=== PATIENT | male | born 1950 | race Caucasian/White ===

== ENCOUNTER 2020-08-20 06:36 | Day surgery (SDC) | payer MEDICARE, OTHER, BC ==
[2020-08-20] MEDS ORDERED: Propofol 200 MG/20 ML SDV ONE (07:01)
[2020-08-20] MEDS ORDERED: fentaNYL 100 MCG/2 ML SDV ONE (07:01)
[2020-08-20 07:29] LABS: CORONAVIRUS COVID-19 NAA NEGATIVE (NEGATIVE)
[2020-08-20] MEDS ORDERED: Cyanocobalamin (Vitamin B12) 1,000 MCG/ML SDV IM ONE (07:30)
[2020-08-20] MEDS ORDERED: Lactated Ringers 1,000 ML IV ONE (07:30)
[2020-08-20] MEDS ORDERED: Glycopyrrolate 0.2 MG/ML 2 ML SDV IVPUSH ONE (07:30)
[2020-08-20] MEDS ORDERED: MVI, Adult with Vitamin K 10 ML, Thiamine 200 MG, Zinc/Copper/Manganese/Selenium 1 ML i... IV ONE ×4 (08:30)
--- NOTE | 2020-09-01 11:48 | OR ---
DATE OF PROCEDURE: 08/20/2020 SURGEON: Tashi Stockton MD PREOPERATIVE DIAGNOSIS: Severe reflux and pulmonary aspiration episodes, status post laparoscopic adjustable gastric band. POSTOPERATIVE DIAGNOSES: 1. Severe reflux and pulmonary aspiration episodes, status post laparoscopic adjustable gastric band. 2. Severe esophageal dilation and ulcerated distal esophagitis. OPERATIVE PROCEDURES: Esophagogastroduodenoscopy with antral biopsies for CLOtest. ANESTHESIA: IV sedation. INDICATION FOR PROCEDURE: The patient is status post a laparoscopic band placement at [facility] in [place], [place], in 2008. Over the last year, he has had progressive problems with severe reflux symptoms as well as vomiting several times a week of otherwise undigested food. He also has developed somewhat of a chronic cough and does wake up evidently probably having aspirated some esophageal contents. Given this, he is to undergo an upper endoscopy for evaluation. Potential risks, including bleeding and perforation, were discussed, and the patient wishes to proceed. DETAILS OF PROCEDURE: The patient was taken to the operating room and placed in the left lateral decubitus position. IV sedation was administered, after which the upper GI endoscope was passed orally through the length of the esophagus and into the stomach with retroflexion view of the fundus and thereafter through the pyloric channel to the junction of the third and fourth portions of the duodenum. Examination revealed reddened hypopharynx and larynx, and as one entered the esophagus, it was noted to be diffusely dilated, particularly distally, with that there was some retained fluid as well as some scattered solid food within the distal esophagus despite the patient having been n.p.o. for several hours. This was associated with marked redness and friability of the distal esophagus. The band itself was normally positioned with no narrowing of the stomach at the point of band i.e., there was no mechanical obstruction present. The remainder of the gastric and duodenal exams were unremarkable. At this point, biopsies were obtained from the antrum and sent for CLOtest for H pylori. The scope was then withdrawn and the procedure then concluded. Of note, the patient had no further evidence of any cardiac problems during the upper endoscopy. The plan will be to have the patient call Palma Marti on her virtual visit in roughly 1 week. At a bear minimum, the patient should have the band removed. Ideally, this would be associated with conversion to a Angelika-en-Y gastric bypass to avoid recurrent problems with morbid obesity, and this will be discussed at the virtual visit in roughly 1 week. Tashi Stockton MD /[id number]
--- NOTE | 2020-09-01 12:27 | PN ---
DATE OF SERVICE: 08/20/2020 Mr. Elaine was willing to be receiving an upper endoscopy receiving for evaluation of lap- band status. He received Robinul with the usual dose of 0.4 mg and he was noted to develop a considerable chest pain. At that time, he was transferred to the emergency room. He was noted to have normal EKG and his pain dissipated. The patient is noted to have two cardiac catheterizations in the last four years, for similar episodes of chest pain, both of which were normal, and at that point was cleared by the emergency room to undergo the subsequent upper endoscopy. We will add Robinul to his allergy list. Tashi Stockton MD /[id number]
== END 2020-08-20 11:24 | disposition home or self-care (01) ==
LOC: JP.SDS 06:36
PROVIDERS: ATTEND Surgery
DX: K21.00 Gastro-esophageal reflux disease with esophagitis, without bleeding (principal); K22.10 Ulcer of esophagus without bleeding; K22.8 Other specified diseases of esophagus; I25.10 Atherosclerotic heart disease of native coronary artery without angina pectoris; E78.00 Pure hypercholesterolemia, unspecified; I10 Essential (primary) hypertension; J44.9 Chronic obstructive pulmonary disease, unspecified; G47.33 Obstructive sleep apnea (adult) (pediatric); E66.01 Morbid (severe) obesity due to excess calories; Z68.33 Body mass index [BMI] 33.0-33.9, adult; Z01.812 Encounter for preprocedural laboratory examination; Z20.822 Contact with and (suspected) exposure to COVID-19; Z98.84 Bariatric surgery status; Z98.890 Other specified postprocedural states
CPT/HCPCS: 0241U; 43239; 87081; 93005; 99284; 99285; J2704; J3010; J3411; J3420; J3490; J7120

== ENCOUNTER 2020-08-20 09:02 | Emergency (ER) | payer MEDICARE, OTHER, BC ==
--- NOTE | 2020-08-20 09:33 | EDM.PDOC ---
ED HPI GENERAL MEDICAL PROBLEM - General Chief Complaint: Chest Pain Stated Complaint: SENT FROM [facility] Time Seen by Provider: 08/20/20 09:15 Source of Information: Reports: Patient, Provider History Limitations: Reports: No Limitations - History of Present Illness INITIAL COMMENTS - FREE TEXT/NARRATIVE: 70-year-old male with a history of angina, he has had 2 angiograms in the last 4 years both normal. He was about to get an EGD when he was given Robinul, then developed some substernal chest pressure and a spasm in his lower back. They decided he should be checked out in the emergency room. On arrival to ER he has no symptoms. He did not develop any shortness of breath, diaphoresis, nausea or neck or jaw or arm pain. Onset: Sudden Duration: Hour(s): (Within the last hour after receiving some medications preprocedure) Location: Reports: Chest, Back (Lower back) Quality: Reports: Sharp - Related Data Allergies Allergy/AdvReac Type Severity Reaction Status Date / Time No Known Allergies Allergy Verified 08/20/20 09:18 Home Meds: Home Meds Acetaminophen 1,000 mg PO Q4HR PRN 08/20/20 [History] Cetirizine [ZyrTEC] 10 mg PO DAILY 08/20/20 [History] Diltiazem [Cardizem] 120 mg PO DAILY 08/20/20 [History] Ibuprofen 400 mg PO Q6HR PRN 08/20/20 [History] Metoprolol Succinate 50 mg PO DAILY 08/20/20 [History] Nitroglycerin [Nitrostat] 0.4 mg SL ASDIRECTED 08/20/20 [History] Pantoprazole 20 mg PO BIDAC 08/20/20 [History] Pramipexole [Mirapex] 0.25 mg PO BEDTIME 08/20/20 [History] Sertraline [Zoloft] 50 mg PO DAILY 08/20/20 [History] atorvaSTATin [Lipitor] 10 mg PO DAILY 08/20/20 [History] buPROPion HCL [Wellbutrin Xl] 150 mg PO DAILY 08/20/20 [History] diphenhydrAMINE HCL [Benadryl] 25 mg PO Q6HR PRN 08/20/20 [History] Past Medical History HEENT History: Reports: Cataract, Impaired Vision Cardiovascular History: Reports: CAD, Heart Murmur, High Cholesterol, Hypertension Respiratory History: Reports: COPD, Sleep Apnea Gastrointestinal History: Reports: Colon Polyp, GERD Musculoskeletal History: Reports: Back Pain, Chronic Psychiatric History: Reports: Addiction, Anxiety, Depression Endocrine/Metabolic History: Reports: Obesity/BMI 30+ - Infectious Disease History Infectious Disease History: Reports: C-Difficile, Chicken Pox, Measles, Mumps - Past Surgical History HEENT Surgical History: Reports: Cataract Surgery, Tonsillectomy Cardiovascular Surgical History: Reports: Other (See Below) Other Cardiovascular Surgeries/Procedures: angiogram Respiratory Surgical History: Reports: None GI Surgical History: Reports: Bariatric Procedure, Colonoscopy, EGD, Hernia, Abdominal, Other (See Below) Other GI Surgeries/Procedures: Lap band in 2008 Endocrine Surgical History: Reports: None Musculoskeletal Surgical History: Reports: None Social & Family History - Family History Family Medical History: No Pertinent Family History - Caffeine Use Caffeine Use: Reports: Coffee ED ROS GENERAL - Review of Systems Review Of Systems: See Below Constitutional: Denies: Fever, Chills HEENT: Reports: No Symptoms Respiratory: Denies: Shortness of Breath Cardiovascular: Reports: Chest Pain (Substernal) GI/Abdominal: Reports: No Symptoms Skin: Reports: No Symptoms Neurological: Reports: No Symptoms ED EXAM, GENERAL - Physical Exam Exam: See Below Exam Limited By: No Limitations General Appearance: Alert, No Apparent Distress Head: Atraumatic Respiratory/Chest: Lungs Clear Cardiovascular: Regular Rate, Rhythm GI/Abdominal: Soft, Non-Tender Neurological: Alert, Oriented Skin Exam: Warm, Dry Course - Vital Signs Last Recorded V/S: Last Vital Signs Temp 97.3 F 08/20/20 09:18 Pulse 65 08/20/20 09:18 Resp 14 08/20/20 09:39 BP 135/79 08/20/20 09:39 Pulse Ox 97 08/20/20 09:39 - Re-Assessments/Exams Free Text/Narrative Re-Assessment/Exam: 08/20/20 09:33 EKG done was normal, and the patient symptoms have resolved. In talking with the patient he has had angina off and on for years but 2 angiograms in the last 4 years have both been normal. Discussed this with Dr. Stockton, the only other op tion other than proceeding with his procedure would be to wait 4 hours and draw troponin which I think would be negative. He agreed to take him back to [facility] for his procedure and will send him back over to ER if they develop any difficulties. Departure - Departure Time of Disposition: 09:39 Disposition: DC/Tfer to Other 70 Reason for Transfer *Q: Other Clinical Impression: Atypical chest pain Referrals: PCP,None [Primary Care Provider] - Forms: ED Department Discharge Care Plan Goals: Patient is to be discharged back to [facility] to get his EGD procedure by Dr. Stockton. Sepsis Event Note (ED) - Evaluation Sepsis Screening Result: No Definite Risk - Focused Exam Vital Signs: Vital Signs Temp Pulse Resp BP Pulse Ox 08/20/20 09:39 14 135/79 97 08/20/20 09:18 97.3 F 65 15 128/68 98
== END 2020-08-20 09:39 | disposition other institution (70) ==
LOC: JP.ED 09:02
DX: R07.89 Other chest pain (principal); I25.10 Atherosclerotic heart disease of native coronary artery without angina pectoris; E78.00 Pure hypercholesterolemia, unspecified; I10 Essential (primary) hypertension; J44.9 Chronic obstructive pulmonary disease, unspecified; K21.9 Gastro-esophageal reflux disease without esophagitis; E66.9 Obesity, unspecified; Z68.33 Body mass index [BMI] 33.0-33.9, adult
CPT/HCPCS: 99284; 99285-25

== ENCOUNTER 2020-09-07 07:08 | Day surgery (SDC) | payer MEDICARE, BC, OTHER ==
[~2020-09-07 07:08] MED LIST: Bupivacaine 0.5% 50 ML MDV ONE; Dexamethasone 4 MG/ML SDV ONE; Glycopyrrolate 0.2 MG/ML 5 ML MDV ONE; Lidocaine 1% with EPINEPHrine 1:100,000 50 ML MDV ONE; Meropenem 500 MG SDV ONE; Neostigmine Methylsulfate 1 MG/ML 5 ML Syringe ONE; Ondansetron 4 MG/2 ML SDV ONE; Propofol 200 MG/20 ML SDV ONE; Rocuronium 50 MG/5 ML Vial ONE; Succinylcholine 200 MG/10 ML MDV ONE; fentaNYL 250 MCG/5 ML SDV ONE
[2020-09-07] MEDS ORDERED: Albuterol/Ipratropium 3.0-0.5 MG/3 ML Neb Soln NEB ONE (07:29)
[2020-09-07] MEDS ORDERED: Ketamine 50 MG in Sodium Chloride 0.9% 49.5 ML IV SCH (07:30)
[2020-09-07] MEDS ORDERED: Ketamine 500 MG/5 ML MDV IV SCH (07:30)
[2020-09-07] MEDS ORDERED: Acetaminophen 500 MG Tab PO ONE (07:45)
[2020-09-07] MEDS ORDERED: Dextrose 5%-Lactated Ringers 1,000 ML IV SCH ×2 (08:30→11:30)
[2020-09-07] MEDS ORDERED: ceFAZolin 2 GM in Premix Bag 1 BAG IV ONE (09:00)
[2020-09-07] MEDS ORDERED: Sugammadex Sodium 200 MG/2 ML VIAL ONE (09:02)
[2020-09-07] MEDS ORDERED: fentaNYL 250 MCG/5 ML SDV ONE (09:16)
[2020-09-07] MEDS ORDERED: Naloxone 0.4 MG/ML SDV ONE (10:21)
[2020-09-07] MEDS ORDERED: Cyclobenzaprine 10 MG Tab PO PRN (11:25)
[2020-09-07] MEDS ORDERED: HYDROmorphone 2 MG Tab PO PRN (11:25)
[2020-09-07] MEDS ORDERED: Nitroglycerin 0.4 MG Tab.SL SL PRN (11:31)
[2020-09-07] MEDS ORDERED: Ibuprofen 400 MG Tab PO PRN (11:33)
[2020-09-07] MEDS ORDERED: HYDROmorphone 0.5 MG/0.5 ML Syringe IVPUSH PRN (12:00)
[2020-09-07] MEDS ORDERED: Metoclopramide 10 MG/2 ML SDV IVPUSH PRN (12:00)
[2020-09-07] MEDS ORDERED: Labetalol 20 MG/4 ML Syringe IVPUSH PRN (12:00)
[2020-09-07] MEDS ORDERED: Ondansetron 4 MG/2 ML SDV IVPUSH PRN (12:00)
[2020-09-07] MEDS ORDERED: Acetaminophen 500 MG Tab PO PRN (12:00)
[2020-09-07] MEDS ORDERED: Albuterol/Ipratropium 3.0-0.5 MG/3 ML Neb Soln INH PRN (12:00)
[2020-09-07] MEDS ORDERED: HYDROmorphone 1 MG/ML Syringe IV PRN (12:00)
[2020-09-07] MEDS ORDERED: hydrOXYzine HCL 100 MG/2 ML SDV IM PRN (12:00)
[2020-09-07] MEDS ORDERED: diphenhydrAMINE 50 MG/ML SDV IVPUSH PRN (12:00)
[2020-09-07] MEDS: Albuterol/Ipratropium 3.0-0.5 MG/3 ML Neb Soln INH SCH ×2 (12:50→20:55)
[2020-09-07] MEDS: Acetaminophen 500 MG Tab PO SCH ×2 (13:51→22:45)
[2020-09-07] MEDS ORDERED: Pantoprazole 40 MG Vial IVPUSH SCH (14:00)
[2020-09-07] MEDS ORDERED: cefOXitin 2 GM in Sodium Chloride 0.9% 50 ML IV SCH (14:00)
[2020-09-07] MEDS ORDERED: MVI, Adult with Vitamin K 10 ML, Thiamine 200 MG, Zinc/Copper/Manganese/Selenium 1 ML i... IV SCH ×4 (16:00)
[2020-09-07] MEDS: Heparin Sodium 5,000 Units/ML Vial SUBCUT SCH (16:26)
[2020-09-07] MEDS ORDERED: atorvaSTATin 10 MG Tab PO SCH (21:00)
[2020-09-07] MEDS ORDERED: Pramipexole 0.25 MG Tab PO SCH (21:00)
[2020-09-08] MEDS: Acetaminophen 500 MG Tab PO SCH (05:13)
[2020-09-08] MEDS: Heparin Sodium 5,000 Units/ML Vial SUBCUT SCH (05:13)
[2020-09-08] MEDS: Albuterol/Ipratropium 3.0-0.5 MG/3 ML Neb Soln INH SCH (07:12)
[2020-09-08] MEDS ORDERED: Pantoprazole 40 MG Tab.CR PO SCH (07:30)
--- NOTE | 2020-09-08 08:46 | DISCH ---
ADMISSION DIAGNOSES: Intolerance to gastric lap band, weight regain, hypertension. DISCHARGE DIAGNOSIS: Removal of gastric band device with partial gastrectomy, laparoscopic. Date: 09/07/2020. Surgeon: Tashi Stockton MD. HISTORY: Renan Elaine is a pleasant 70-year-old male who had intolerance to the adjustable gastric lap band. After preoperative evaluation and discussion of possible risks and possible complications, he wished to proceed with surgical procedure. HOSPITAL COURSE: Renan had a surgery on 09/07/2020. On postoperative day #1, pain was controlled with Tylenol. He was up, ambulating. Vital signs stable. Oral intake adequate. He was able to be discharged to home. PHYSICAL EXAMINATION: GENERAL: Renan Elaine is a pleasant 70-year-old male. VITAL SIGNS: Height is 5 feet 7 inches, weight is 220 pounds. TPR is 97.7, 70, 18, blood pressure 121/56. HEENT: Negative. NECK: Supple. HEART: Regular rate and rhythm. LUNGS: Clear. ABDOMEN: Dressings dry and intact. Abdominal binder is on. EXTREMITIES: Without peripheral edema. DISPOSITION: Discharged to home. CONDITION: Stable and improving. HOME MEDICATIONS: To resume all of his home medication that he was taking prior to admission in addition to Tylenol Extra-Strength 1000 mg every 8 hours, albuterol inhaler 2 puffs every 4 hours p.r.n., vitamin D3 5000 International Units daily, vitamin B complex 1 tablet daily, calcium citrate 1 tablet p.o. daily, Benadryl 25 mg every 6 hours p.r.n. allergies or itching, Wellbutrin 150 mg p.o. daily, Lipitor 10 mg p.o. daily, Zoloft 50 mg p.o. daily, Mirapex 0.25 mg p.o. at bedtime, pantoprazole 20 mg p.o. b.i.d., metoprolol succinate 50 mg p.o. daily, ibuprofen 400 mg q.6 hours p.r.n., diltiazem 120 mg p.o. daily, Zyrtec 10 mg p.o. daily. FOLLOWUP APPOINTMENT: With Palma Marti PA-C. Assume virtual visit on 09/17/2020 at 11 a.m. He is to follow up with his primary care provider on 09/16/2020 to have the sutures removed. DIET: Regular diet as tolerated. Drink 8 to 10 glasses of water a day. ACTIVITY: No lifting greater than 10 pounds for 6 weeks. Walk at least 6 times daily inside your home. Driving: May drive in [address] in 48 hours to make sure anesthesia is totally cleared. DISCHARGE INSTRUCTIONS: May shower. Keep operative site clean and dry. Wear abdominal binder for 2 weeks and then as tolerated. Notify provider if any fever, increased pain, swelling, redness, drainage, nausea, vomiting. Other instructions: Use incentive spirometer 10 times every hour while awake for 1 week, and on the ride home, walk around every hour you are in the car. We will evaluate p.r.n. or in a.m. /[id number]
[2020-09-08] MEDS ORDERED: buPROPion 150 MG Tab.ER PO SCH (09:00)
[2020-09-08] MEDS ORDERED: Cetirizine 10 MG Tab PO SCH (09:00)
[2020-09-08] MEDS ORDERED: Metoprolol Succinate 50 MG Tab.ER PO SCH (09:00)
[2020-09-08] MEDS ORDERED: Diltiazem 120 MG Cap.CD PO SCH (09:00)
[2020-09-08] MEDS: Sertraline 50 MG Tab PO SCH ×2 (09:07→09:08)
[2020-09-09] MEDS ORDERED: Cyanocobalamin (Vitamin B12) 1,000 MCG/ML SDV IM ONE (09:00)
--- NOTE | 2020-09-21 12:39 | OR ---
DATE OF PROCEDURE: 09/07/2020 SURGEON: Tashi Stockton MD PREOPERATIVE DIAGNOSIS: Intolerance to laparoscopic adjustable gastric band. POSTOPERATIVE DIAGNOSES: 1. Intolerance to laparoscopic adjustable gastric band. 2. Area of deserosalization of gastric fundus, status post takedown of the band. 3. Incarcerated incisional hernia at exit site of port tubing of lower abdominal wall. OPERATIVE PROCEDURES: Diagnostic laparoscopy with lysis of adhesions: 1. Removal of laparoscopic adjustable gastric band system (29101). 2. Partial gastrectomy (98763). 3. Repair of incarcerated incisional hernia (84065). ANESTHESIA: General. TOWER ATTENDANT: Palma Marti PA-C. INDICATION FOR PROCEDURE: A 70-year-old status post laparoscopic adjustable gastric band placement done in [place]. He has developed progressive problems with esophageal dilation with severe heartburn and intolerance of the band system. The plan is to proceed with removal of the band system. At this point, he does not want wish to be converted to a gastric bypass, but knows that that is a possibility over time. Potential risks including bleeding, infection, leaks from various GI tract closures as well as possibility of cardiopulmonary, septic, or hemorrhagic complications leading to were discussed, the likelihood of significant weight regain was also once again reviewed with the patient and he wishes to proceed. DETAILS OF PROCEDURE: The patient taken to the operating room and placed in a supine position. After general endotracheal anesthesia was induced, the abdomen was prepped and draped and patient placed in a lithotomy position. At 15 cm inferior and 5 cm left of the xiphoid process, a transverse incision was made and the peritoneal cavity entered under direct vision with an Optiview trocar. Five additional trocars were then placed across the upper mid abdomen, and some adhesions between the omentum and the anterior abdominal wall were taken down. Bilateral transversus abdominis plane blocks were then placed. A portion of the port tubing was then excised which included the joint so as to avoid leaving a portion of that port tubing in place on a subsequent removal. The dissection around the band was then commenced with a combination of Harmonic scalpel and electrocautery. During the course of the dissection, a segment of the gastric fundus overlying the band seemed to be devascularized, this was excised with means of AB staple load. After removal of the band, once band was freed up of its adherent attachments, it was divided and then pulled back out through the band site encasing the upper stomach and this was disconnected and then the 2 components were removed from the peritoneal cavity. After removal of the portion of the gastric fundus, hemostasis was confirmed and some minor bleeding controlled with electrocautery, and at that point no further intraabdominal problems were noted. The trocars were then removed and the peritoneal cavity deflated. An incision was then made over the port site in the left lower quadrant. The port was then dissected free and removed. The patient did have an underlying incisional hernia located there which contained some incarcerated omentum. The latter was reduced back into the peritoneal cavity and the hernia defect then closed with a [id number] stitch of #1 Vicryl stitch. The incision was then closed with 3-0 and 4-0 Vicryl stitch deep and dressing applied. The patient was taken to the recovery room in satisfactory condition. There were no evident complications. Physician payroll assistant, Palma Marti, played an essential role in assisting in this case, helping to position the patient, retract structures as needed, as well as suturing and cutting sutures when indicated. Her presence improved patient safety and decreased operative time. Tashi Stockton MD /[id number]
== END 2020-09-08 09:10 | disposition home or self-care (01) ==
LOC: UNDOADMIN 07:08 → JP.SDSSCHI 07:08 → JP.SDS 07:08 → EDSTATUS 09:15 → JP.MS 10:00 → JP.SDSSCHI 10:00 → JP.MS 11:00 → JP.SDSSCHI 11:00 → JP.SDS 09-08 09:10 → UNDODISIN 09-08 09:35
PROVIDERS: ATTEND Surgery
DX: K95.09 Other complications of gastric band procedure (principal); K43.0 Incisional hernia with obstruction, without gangrene; K66.0 Peritoneal adhesions (postprocedural) (postinfection); E66.01 Morbid (severe) obesity due to excess calories; I10 Essential (primary) hypertension; E78.5 Hyperlipidemia, unspecified; K21.9 Gastro-esophageal reflux disease without esophagitis; J44.9 Chronic obstructive pulmonary disease, unspecified; G25.81 Restless legs syndrome; E53.9 Vitamin B deficiency, unspecified; E55.9 Vitamin D deficiency, unspecified; E53.8 Deficiency of other specified B group vitamins; K91.2 Postsurgical malabsorption, not elsewhere classified; G47.33 Obstructive sleep apnea (adult) (pediatric); I25.10 Atherosclerotic heart disease of native coronary artery without angina pectoris; Z87.891 Personal history of nicotine dependence; Z79.899 Other long term (current) drug therapy; Z88.8 Allergy status to other drugs, medicaments and biological substances; Z98.84 Bariatric surgery status; Z68.34 Body mass index [BMI] 34.0-34.9, adult
CPT/HCPCS: 43774; 88300; 88305; 94640; 94762; A9270; C9113; J0171; J0330; J0690; J0694; J1100; J1644; J2185; J2310; J2405; J2704; J2795; J3010; J3410; J3411; J3490; J7121; J2710; J7620-GY